=== PATIENT | female | born 1985 | race Caucasian/White ===

== ENCOUNTER 2018-08-16 23:28 | Emergency (ER) | payer BC, OTHER ==
[~2018-08-16] VITALS: Ht 165.1 cm; Wt 89.8 kg
--- NOTE | 2018-08-17 00:28 | Diagnostic Imaging Report ---
EXAMINATION: CXR 1 W - [facility] INDICATION: Chest pain, left arm pain, numbness, palpitations. COMPARISON: None FINDINGS: TUBES and LINES: None. LUNGS: Lungs are well inflated. Lungs are clear. There is no evidence of pneumonia or pulmonary edema. PLEURA: No pleural effusion or pneumothorax. HEART AND MEDIASTINUM: The cardiomediastinal silhouette is unremarkable. BONES AND SOFT TISSUES: No acute osseous lesion. Soft tissues are unremarkable. UPPER ABDOMEN: No free air under the diaphragm. IMPRESSION: No acute thoracic abnormality. Signed by: DR. Joon Hernandez MD on 08/17/2018 12:24 AM
[2018-08-17 00:42] VITALS: BP 129/72
== END 2018-08-17 00:43 | disposition home or self-care (01) ==
LOC: FSED 23:28
DX: R07.89 Other chest pain (principal); F41.1 Generalized anxiety disorder
CPT/HCPCS: 71045; 93005; 99284